=== PATIENT | male | born 1985 | race Caucasian/White ===

== ENCOUNTER 2016-09-06 00:12 | Emergency (ER) ==
[2016-09-06] MEDS ORDERED: DILAUDID IV ONE ×2 (00:28→01:57)
[2016-09-06] MEDS ORDERED: ZOFRAN IV ONE (00:32)
--- NOTE | 2016-09-06 00:38 | PROVIDER DOCUMENTATION ---
HPI-Abdominal Pain/GI Problem - General Chief Complaint: Constipation Stated Complaint: URINARY RETENSION Time Seen by Provider: 09/06/16 00:27 Allergies/Adverse Reactions: Patient Allergies Allergy/AdvReac Type Severity Reaction Status Date / Time shellfish derived Allergy SHORTNESS Verified 09/06/16 00:21 OF BREATH Home Medications: Home Medication List Medication Instructions Recorded Confirmed Last Taken Type Dextroamphetamine/Amphetamine 20 mg PO DAILY 09/06/16 09/06/16 09/05/16 History [Adderall 20 mg Tablet] Duloxetine [Cymbalta] 20 mg PO HS 09/06/16 09/06/16 09/05/16 History Ketorolac [Toradol] 10 mg PO Q6H PRN PRN #12 tablet 09/06/16 Unknown Rx Oxycodone HCl/Acetaminophen 1 each PO Q6H #15 tablet 09/06/16 Unknown Rx [Percocet 10-325 mg Tablet] Tamsulosin [Flomax] 0.4 mg PO BID #20 capsule 09/06/16 Unknown Rx - History of Present Illness-ABD Nature of Presenting Problems: Pt comes in with 04/19 LLQ abd pain. She states that he felt a burning in this area around 3 hours [employer] and now is having intense sharp pain. He has a hx of htn and C diff colitis. Review of Systems - Adult - REVIEW OF SYSTEMS - ADULT Constitutional: reports: no symptoms reported. denies: chills, fever, fatique, night sweats, weight gain, weight loss Eyes: reports: no symptoms reported. denies: discharge, dry eyes, double vision , eye pain, redness Ears, Nose, Mouth & Throat: reports: no symptoms reported. denies: ear pain, tinnitus, epistaxis, loose teeth, mouth/dental pain, hoarseness, throat pain, throat swelling Cardiovascular: reports: no symptoms reported. denies: chest pain, edema, heart murmur, irregular heart rate, orthopnea, poor circulation, PND, syncope Respiratory: reports: no symptoms reported. denies: chronic cough, cough, dyspnea on exertion, excessive sputum production, pleurisy, shortness of breath , wheezing Gastrointestinal: reports: see HPI, abdominal pain, constipation, nausea. denies: hematemesis, diarrhea, difficulty swallowing, frequent heartburn, poor appetite, rectal bleeding, vomiting Genitourinary: reports: hesitency. denies: dysuria, discharge, frequency, flank pain, frequent UTI's, hematuria, incontinence, urinary retention, urgency Musculoskeletal: reports: no symptoms reported. denies: bone pain, back pain, frequent leg cramps, joint pain, joint swelling, muscle weakness, neck pain Integumentary: reports: no symptoms reported. denies: hives, hair loss, itching , mole changes, nail changes, rash, skin sores/ulcer, skin thickening Neurological: reports: no symptoms reported. denies: ataxia, dizziness/vertigo , headache/migraines, loss of balance, numbness, paresthesia, seizure, syncope, tremors Psychiatric: reports: no symptoms reported. denies: anxiety, anti-depressant use, depression, emotional problems, insomnia, panic attacks, suicidal thoughts Endocrine: reports: no symptoms reported. denies: change in skin pigment, excessive sweating, cold intolerance, heat intolerance, increased hunger, increased thirst, polyuria Hematologic/Lymphatic: reports: no symptoms reported. denies: blood clots, easy bruising, low blood count, prolonged bleeding, swollen lymph nodes, transfusions Allergic/Immunologic: reports: no symptoms reported. denies: allergic reactions , asthma, eczema, food allergy, frequent infections, hay fever, hives, positive PPD, urticaria All Other Systems: Reviewed and Negative Past History - Adult - PAST MEDICAL HISTORY-ADULT Review of Records: reports: Old Records Reviewed, Nursing Assessment Review, Medications Reviewed, Social history reviewed & non-contributory. Major Childhood Illnesses: reports: denies history Cardiovascular: reports: HTN Respiratory: reports: denies history Gastrointestinal: reports: denies history Obstetrical/Gynecological: reports: denies history Genitourinary: reports: denies history Musculoskeletal: reports: denies history Neurological: reports: denies history Endocrine/Immune: reports: denies history Other Conditions: reports: denies history - PRIOR SURGERIES/PROCEDURES Surgical/Procedure History: reports: reviewed, not pertinent - PRIOR HOSPITALIZATIONS Prior Hospitalizations: reports: none - IMMUNIZATION STATUS Childhood Immunizations: See Nurse Assessment Flu Vaccine: See Nurse Assessment - FAMILY HISTORY Family History: reviewed, not pertinent - SOCIAL HISTORY Smoking: denies Substance Use: none/never Alcohol Use Frequency: never Living Situation: family Physical Exam-General - PHYSICAL EXAM-ADULT Initial Vital Signs Reviewed: Yes - CONSTITUTIONAL General Appearance: alert, severe distress, anxious - EYES Eyes: PERRL/EOMI, pink conjunctivae - HEAD, EARS, NOSE, MOUTH & THROAT HENMT: normocephalic/atraumatic, moist mucous membranes, normal ENT inspection - NECK Neck: non-tender, full range of motion, supple - RESPIRATORY Respiratory: chest non-tender, lungs clear, normal breath sounds, no pleuratic chest pain, no respiratory distress - CARDIOVASCULAR Cardiovascular: normal peripheral pulses, regular rate, rhythm, no edema, no gallop, no JVD, no murmur - GASTROINTESTINAL (ABDOMEN) Abdominal Exam: normal bowel sounds, soft, tenderness. 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 nml as tested, grossly normal - PSYCHIATRIC Psych/Mental Status: normal thought content, normal thought process, oriented x 3, anxious, disheveled Progress - PLAN OF CARE/RESULTS Progress/Plan/Lab Results: Laboratory Tests 09/06/16 09/06/16 00:30 00:30 WBC 9.01 RBC 4.82 Hgb 14.4 Hct 42.6 MCV 88.4 MCH 29.9 MCHC 33.8 RDW Std Deviation 13.5 Plt Count 260 MPV 10.1 Immature Gran % (Auto) 0.0 Neut % (Auto) 70.5 Lymph % (Auto) 17.8 L Wells % (Auto) 10.2 H Eos % (Auto) 1.3 Baso % (Auto) 0.2 Immature Gran # (Auto) 0.00 Neut # (Auto) 6.35 Lymph # (Auto) 1.60 Wells # (Auto) 0.92 H Eos # (Auto) 0.12 Baso # (Auto) 0.02 Sodium 138 Potassium 3.7 Chloride 102 Carbon Dioxide 21 L Anion Gap 15 BUN 9 Creatinine 1.1 Estimated GFR/1.73 m2 > 60 BUN/Creatinine Ratio 8 Glucose 104 Calculated Osmolality 275 Calcium 8.9 Total Bilirubin 0.32 AST 22 ALT 19 Alkaline Phosphatase 96 Total Protein 7.2 Albumin 4.4 Globulin 2.8 Albumin/Globulin Ratio 1.6 Orders Category Date Time Status CT ABD/PELVIS W/ IV CONT ONLY [CT] Stat Exams 09/06/16 00:30 Ordered CBC WITH DIFF [HEME] Stat Lab 09/06/16 00:30 Completed CMP [COMPREHENSIVE METABOLIC PANEL] [CHEM] Stat Lab 09/06/16 00:30 Completed UA Reflex [URINALYSIS W/POSS RFLX CULT] [URINALYSIS] Lab 09/06/16 00:29 Uncollected Stat UDS [URINE DRUG SCREEN] Stat Lab 09/06/16 00:29 Uncollected Acetaminophen [Ofirmev 1000 mg/Isotonic Soln] 100 ml Med 09/06/16 00:49 Discontinued IV NOW Hydromorphone [Dilaudid] Med 09/06/16 00:28 Discontinued 1 mg IV NOW ONE Ketorolac [Toradol] Med 09/06/16 00:49 Discontinued 30 mg IV NOW ONE Ondansetron [Zofran] Med 09/06/16 00:32 Discontinued 4 mg IV NOW ONE Vital Signs - 24 hr 09/06/16 00:17 Temperature 98.1 F Pulse Rate 98 H Respiratory 16 Rate Blood Pressure 163/105 O2 Sat by Pulse 100 Oximetry - CT/MRI 1 CT Study: Abdomen CT Results: left 5 MM kindney stone with mild hydro (RAD) Departure - Departure Time of Disposition Order: 01:31 DIAGNOSIS: Kidney stone on left side Disposition: HOME 01 Certified Medical Emergency: Emergent Condition: Good Additional Instructions: follow up with urology ED Follow Up Instructions: You have been treated by a care provider in the Emergency Department. These instructions are being provided to you so you can have an understanding of how to care for yourself upon discharge. Upon discharge from the Emergency Department, you are responsible for making arrangements for follow-up care by a physician of your choice. Take all prescribed medications as directed. Return to the Emergency Department immediately for any new or worsening symptoms. You may call the Physician Referral phone number at [phone] to obtain a list of Physicians who are taking new patients. Prescriptions: Ketorolac [Toradol] 10 mg PO Q6H PRN PRN #12 tablet PRN Reason: Pain Tamsulosin [Flomax] 0.4 mg PO BID #20 capsule Oxycodone HCl/Acetaminophen [Percocet 10-325 mg Tablet] 1 each PO Q6H #15 tablet Referrals: Og Rubio MD [Primary Care Provider] - Daniel Zamudio MD [STAFF PHYSICIAN] - Attestation - Physician/ TREY Attestation Patient care was provided by Advanced Practice Provider:: Yes Advanced Practice Provider:: Kalli Wisdom Advanced Practice Provider documentation review:: The Mid-level provider documentation, treatment plan and medical decision making was reviewed by the physician who agrees with all treatment and medical decision making by the MLP.
[2016-09-06 00:39] LABS: MANUAL DIFF NEEDED? NO
[2016-09-06 00:41] LABS: BASO% 0.2 % (0.0-0.8); EOS# 0.12 X1000 (0.0-0.7); EOS% 1.3 % (0.0-10.0); HEMATOCRIT 42.6 % (42.0-52.0); HEMOGLOBIN 14.4 g/dL (14.0-18.0); LYMPH% 17.8 % (20.5-51.1); MCH 29.9 PG (27-31); MCHC 33.8 g/dL (33-37); MCV 88.4 FL (81-99); MONO# 0.92 X1000 (0.11-0.59); MONO% 10.2 % (1.7-9.3); MPV 10.1 FL (7.4-10.4); NEUT% 70.5 % (42.2-75.2); PLT 260 X1000 (130-400); RBC 4.82 XMIL (4.7-6.1)
[2016-09-06] MEDS ORDERED: TORADOL IV ONE (00:49)
[2016-09-06] MEDS ORDERED: OFIRMEV 1000 MG/ISOTONIC SOLN 100 ML IV ONE (00:49)
[2016-09-06 00:58] LABS: AGAP 15; ALBUMIN 4.4 g/dL (3.5-5.0); ALKALINE PHOSPHATASE 96 U/L (32-122); BUN 9 mg/dL (8-22); CALCIUM 8.9 mg/dL (8.8-10.2); CHLORIDE 102 mmol/L (98-107); COSMO 275; GOT 22 U/L (10-34); GPT 19 U/L (10-44); POTASSIUM 3.7 mmol/L (3.5-5.1); SODIUM 138 mmol/L (136-145); TCO2 21 mmol/L (25-35); TOTAL BILIRUBIN 0.32 mg/dL (0.20-1.00); TOTAL PROTEIN 7.2 g/dL (6.3-8.3)
[2016-09-06] MEDS ORDERED: SODIUM CHLORIDE 0.9% INJ ONE (01:58)
[2016-09-06] MEDS ORDERED: PHENERGAN IV ONE (01:58)
[2016-09-06 02:20] VITALS: BP 139/81
--- NOTE | 2016-09-06 06:27 | Diag Imaging Result Document ---
PROCEDURE NAME: CT ABD/PELVIS W/ IV CONT ONLY - 09/06/2016 CT ABDOMEN AND PELVIS WITH INTRAVENOUS CONTRAST: TECHNIQUE: Dose-reduction protocol. COMPARISON: Compared to 10/28/2014. FINDINGS: There is fatty infiltration of the liver. Normal spleen, gallbladder, pancreas, and kidneys. There is thickening to the wall of the stomach although it is incompletely distended. Normal aorta. There is a delayed left nephrogram secondary to a 4 x 6 x 9 mm stone in the proximal left ureter with mild distention of the renal pelvis and calyces. No bowel obstruction. Normal appendix. No abscess. The urinary bladder is mildly distended and appears normal. Normal prostate. IMPRESSION: 1. There is a stone in the upper left ureter with mild hydronephrosis. 2. Fatty infiltration of the liver. A preliminary report was given at 1:58 a.m.
== END 2016-09-06 02:18 | disposition home or self-care (01) ==
LOC: ED 00:12
DX: N13.2 Hydronephrosis with renal and ureteral calculous obstruction (principal); R10.32 Left lower quadrant pain; K59.00 Constipation, unspecified; R11.0 Nausea; R39.11 Hesitancy of micturition; I10 Essential (primary) hypertension; K76.0 Fatty (change of) liver, not elsewhere classified; Z79.899 Other long term (current) drug therapy
CPT/HCPCS: 74177; 80053; 85025; J0131; J1170; J1885; J2405; J2550; Q9967

== ENCOUNTER 2016-09-09 12:13 | Day surgery (SDC) ==
[2016-09-08 14:15] LABS: HEMATOCRIT 44.4 % (42.0-52.0); HEMOGLOBIN 14.4 g/dL (14.0-18.0); MCH 29.4 PG (27-31); MCHC 32.4 g/dL (33-37); MCV 90.8 FL (81-99); MPV 9.7 FL (7.4-10.4); RBC 4.89 XMIL (4.7-6.1)
[2016-09-08 15:13] LABS: CALCIUM 9.4 mg/dL (8.8-10.2); POTASSIUM 4.8 mmol/L (3.5-5.1); URIC ACID 5.9 mg/dL (3.4-7.0)
[2016-09-09] MEDS ORDERED: PEPCID ONE (12:28)
[2016-09-09] MEDS ORDERED: REGLAN ONE (12:28)
[2016-09-09] MEDS ORDERED: LR 1,000 ML ONE (12:28)
[2016-09-09] MEDS ORDERED: KEFZOL 2 GM/D5W 50 ML ONE (12:29)
[2016-09-09] MEDS ORDERED: DEMEROL ONE ×2 (13:22)
[2016-09-09] MEDS ORDERED: PHENERGAN ONE (13:22)
--- NOTE | 2016-09-09 13:29 | Diag Imaging Result Document ---
PROCEDURE NAME: KUB ABDOMEN - 09/09/2016 ABDOMEN, TWO VIEWS: FINDINGS: There is stool throughout the colon. The bowel loops are not dilated. No organomegaly. There is a 5 mm calcification between the left transverse processes of the L1 and L2 vertebrae. I believe this corresponds to the stone seen on the recent CT. IMPRESSION: 1. Constipation. 2. Left abdominal calcification believed to be a ureteral stone.
[2016-09-09] MEDS: MORPHINE ONE ×2 (15:58→16:08)
[2016-09-09] MEDS ORDERED: DIPRIVAN 1% ONE (16:17)
[2016-09-09] MEDS ORDERED: NORCO-10 ONE (16:37)
[2016-09-09] MEDS ORDERED: FLOMAX ONE (16:37)
--- NOTE | 2016-09-09 16:53 | OPERATIVE NOTE ---
PROCEDURE DATE: 09/09/2016 SURGEON: Daniel Zamudio MD. PREOPERATIVE DIAGNOSIS: Left proximal ureteral stone. POSTOPERATIVE DIAGNOSIS: Left proximal ureteral stone. PROCEDURE PERFORMED: Left extracorporeal shockwave lithotripsy. ANESTHESIA: General via laryngeal mask. FINDINGS: An approximate 5-6 mm stone in the left proximal ureter. INDICATION FOR PROCEDURE: This 31-year-old male developed severe left flank pain. Evaluation revealed a left proximal ureteral stone with moderate obstruction. DESCRIPTION OF PROCEDURE: After informed consent was obtained from the patient and him receiving IV antibiotics, he was taken the main OR, placed in the supine position. General anesthesia via laryngeal mask was achieved. He was then placed in the proper position for left extracorporeal shockwave lithotripsy. The stone received 3000 shocks, starting at energy level 1, ramping to energy level 7. The stone appeared well fragmented at completion. He received 12.5 g of mannitol at the start. He tolerated the procedure well. Estimated blood loss was 0. Total fluoro time was 1 minute 51 seconds. He tolerated the procedure well and was taken to recovery room in good condition.
[2016-09-09 18:30] VITALS: BP 143/83
[2016-09-10] MEDS ORDERED: ZOFRAN ONE (09:51)
[2016-09-10] MEDS ORDERED: DECADRON ONE (09:51)
[2016-09-10] MEDS ORDERED: XYLOCAINE-MPF 2% ONE (09:51)
[2016-09-10] MEDS ORDERED: MANNITOL ONE (09:51)
[2016-09-10] MEDS ORDERED: LR 1,000 ML ONE (09:51)
== END 2016-09-09 17:43 | disposition home or self-care (01) ==
LOC: OPS 12:13
PROVIDERS: ATTEND Urology
DX: N20.1 Calculus of ureter (principal); Z87.891 Personal history of nicotine dependence
CPT/HCPCS: 74000; 80048; 84550; 85027; J0690; J2175; J2270; J2550; J7120